=== PATIENT | female | born 1970 | race Caucasian/White ===

== ENCOUNTER 2019-04-24 10:42 | Day surgery (SDC) | payer OTHER ==
[2019-04-17 15:46] VITALS: BMI 24.0
[2019-04-24] MEDS ORDERED: MIDAZOLAM HCL 2 MG/2 ML SINGLE DOSE VIAL ONE (13:59)
[2019-04-24] MEDS ORDERED: PROPOFOL 20 ML ONE (13:59)
[2019-04-24] MEDS ORDERED: SUCCINYLCHOLINE CHLORIDE 200 MG/10 ML SYRINGE ONE (14:00)
[2019-04-24] MEDS ORDERED: BUPIVACAINE HCL 0.25% 125 MG/50 ML VIAL ONE (14:04)
[2019-04-24] MEDS ORDERED: DEXAMETHASONE SOD PHOSPHATE 4 MG/1 ML VIAL ONE (14:17)
[2019-04-24] MEDS ORDERED: ONDANSETRON 4 MG/2 ML VIAL ONE ×2 (14:17→15:16)
[2019-04-24] MEDS ORDERED: BUPIVACAINE HCL/PF 0.25% (2.5MG/ML) 10 ML VIAL IJ ONE (14:44)
[2019-04-24] MEDS ORDERED: ONDANSETRON 4 MG/2 ML VIAL IVPUSH PRN (15:23)
[2019-04-24] MEDS ORDERED: PROMETHAZINE HCL 25 MG/1 ML VIAL IVPUSH PRN (15:23)
[2019-04-24] MEDS ORDERED: oxyCODONE HCL 5 MG TABLET PO PRN ×2 (15:23)
[2019-04-24 16:59] VITALS: BP 121/75; PULSE 85; TEMP 98
--- NOTE | 2019-04-30 18:06 | OP ---
DATE OF OPERATION: 04/24/2019 PREOPERATIVE DIAGNOSIS: 1. Left carpal tunnel syndrome. 2. Left trigger thumb. POSTOPERATIVE DIAGNOSIS: 1. Left carpal tunnel syndrome. 2. Left trigger thumb. OPERATIVE PROCEDURE: 1. Left endoscopic carpal tunnel release. 2. Left trigger thumb release. SURGEON: Rod Ruiz MD. ANESTHESIA: Local with general. COMPLICATIONS: None. ESTIMATED BLOOD LOSS: Minimal. INDICATION FOR PROCEDURE: The patient presented with the above findings, was indicated for operative treatment. Risks, benefits, and alternatives were discussed with the patient at length. Proper informed consent was obtained. PROCEDURE: After proper identification of the patient and correct operative site, patient was brought to the operating room and placed supine on the operating table, all bony prominences well padded. General anesthesia was given. Left upper extremity was prepped and draped in the usual sterile fashion. Well-padded tourniquet was placed with a sterile prep. Esmarch bandage to exsanguinate the left upper extremity, tourniquet inflated to 250 mmHg. Transverse incision was made over the proximal wrist crease. Incision was taken sharply through the skin with blunt and sharp dissection through subcutaneous tissues. Antebrachial fascia was divided, and the carpal tunnel was entered. Elevator was used to free any soft tissue from undersurface of transcarpal ligament. Hamate finder dilators were used to prepare the canal, and the Micro[employer]ire endoscopic carpal tunnel release system was used, inserted to the distal edge of the transverse carpal ligament, confirmed topically as well as visually. At all times throughout the procedure, excellent visualization was obtained, and at no time was any soft tissue allowed to interpose between the blade and the undersurface of the transcarpal ligament. Blade was deployed, and the transcarpal ligament divided. Then under direct mini-open approach, the distal 4 cm of the antebrachial fascia were divided for a complete release of the median nerve of the wrist. Wound was irrigated and repaired with a 4-0 Monocryl suture. A 2nd incision was made over the thumb A1 shala transversely. Incision was taken sharply through the skin with blunt and sharp dissection to subcutaneous tissue, taking care to protect neurovascular structures. A1 shala is identified and divided longitudinally. Finger was subsequently extended, and there was no blocked excursion of the flexor tendon. Wound was irrigated and repaired with 5-0 plain gut suture. Sterile dressing was applied. The patient was brought to the recovery room in stable condition. She tolerated the procedure well. ROD RUIZ M.D. [id number]
== END 2019-04-24 16:55 | disposition home or self-care (01) ==
LOC: FASU 10:42
PROVIDERS: ATTEND Orthopaedic Surgery Hand Surgery
PROC: 0LN80ZZ Release Left Hand Tendon, Open Approach (ICD-10-PCS; 2019-04-24)
PROC: 01N54ZZ Release Median Nerve, Percutaneous Endoscopic Approach (ICD-10-PCS; principal; 2019-04-24 14:25)
DX: G56.02 Carpal tunnel syndrome, left upper limb (principal); M65.312 Trigger thumb, left thumb
CPT/HCPCS: 94760

== ENCOUNTER 2019-08-14 06:49 | Day surgery (SDC) | payer OTHER ==
[2019-08-08 10:54] VITALS: BMI 24.0
[2019-08-14] MEDS ORDERED: LIDOCAINE HCL 2% (20ML MULTI-DOSE VIAL) ONE (07:23)
[2019-08-14] MEDS ORDERED: BUPIVACAINE HCL 0.25% 125 MG/50 ML VIAL ONE (07:23)
[2019-08-14] MEDS ORDERED: MIDAZOLAM HCL 2 MG/2 ML SINGLE DOSE VIAL ONE ×2 (08:11→08:32)
[2019-08-14] MEDS ORDERED: oxyCODONE HCL 5 MG TABLET PO PRN (08:21)
[2019-08-14] MEDS ORDERED: ONDANSETRON 4 MG/2 ML VIAL IVPUSH PRN (08:21)
[2019-08-14] MEDS ORDERED: PROPOFOL 20 ML ONE ×4 (08:32→09:45)
[2019-08-14] MEDS ORDERED: ONDANSETRON 4 MG/2 ML VIAL ONE ×2 (08:32→08:46)
[2019-08-14] MEDS ORDERED: DEXAMETHASONE SOD PHOSPHATE 4 MG/1 ML VIAL ONE (08:46)
[2019-08-14] MEDS ORDERED: KETOROLAC TROMETHAMINE 30 MG/1 ML VIAL ONE (08:48)
[2019-08-14] MEDS ORDERED: BUPIVACAINE HCL/PF 0.25% (2.5MG/ML) 10 ML VIAL IJ ONE (09:17)
[2019-08-14 09:44] VITALS: TEMP 97.8
[2019-08-14 10:54] VITALS: BP 116/70; PULSE 84
== END 2019-08-14 11:10 | disposition home or self-care (01) ==
LOC: FASU 06:49
PROVIDERS: ATTEND Orthopaedic Surgery Hand Surgery
PROC: 0LN70ZZ Release Right Hand Tendon, Open Approach (ICD-10-PCS; 2019-08-14)
PROC: 01N54ZZ Release Median Nerve, Percutaneous Endoscopic Approach (ICD-10-PCS; principal; 2019-08-14 08:59)
DX: G56.01 Carpal tunnel syndrome, right upper limb (principal); M65.311 Trigger thumb, right thumb
CPT/HCPCS: 94760